=== PATIENT | female | born 1985 | race Caucasian/White ===

== ENCOUNTER 2017-07-20 05:25 | Emergency (ER) | payer OTHER ==
[2017-07-20] MEDS ORDERED: SODIUM CHLORIDE 1,000 ML IV STA (06:15)
--- NOTE | 2017-07-20 06:15 | PDOC ---
History of Present Illness - General History Source: Patient Exam Limitations: No Limitations - History of Present Illness Initial Comments: 07/20/17 06:33 The patient is a 31 year old female (8 weeks ) with no significant past medical history who presents to the emergency department with one day of vaginal bleeding. Patient reports bleeding is associated with cramping, nausea and dizziness. Patient presents to the ED for further evaluation. Patient denies chest pain, headache. Patient denies fever, chills, abdominal pain,vomit, diarrhea or constipation. Patient denies dysuria, frequency, urgency or hematuria. Patient denies sick contacts or recent travel. <Brinda Jaeger - Last Filed: 07/20/17 06:33> <Sarah Hanley - Last Filed: 07/22/17 09:44> - General Stated Complaint: ABDOMINL PAIN Time Seen by Provider: 07/20/17 06:11 Past History <Brinda Jaeger - Last Filed: 07/20/17 06:33> <Sarah Hanley - Last Filed: 07/22/17 09:44> - Past Medical History Allergies/Adverse Reactions: Allergies Allergy/AdvReac Type Severity Reaction Status Date / Time No Known Allergies Allergy Verified 07/20/17 07:00 Home Medications: Ambulatory Orders Misoprostol [Cytotec] 200 mcg PO TID #8 tablet 07/20/17 Review of Systems - Review of Systems Able to Perform ROS?: Yes Comments:: 07/20/17 06:33 GENERAL/CONSTITUTIONAL: No fever or chills. No weakness. HEAD, EYES, EARS, NOSE AND THROAT: No change in vision. No ear pain or discharge. No sore throat. GASTROINTESTINAL: + nausea. +cramping. No vomiting, diarrhea or constipation. GENITOURINARY: +vaginal bleeding. No dysuria, frequency, or change in urination. CARDIOVASCULAR: + shortness of breath. No chest pain. RESPIRATORY: No cough, wheezing, or hemoptysis. MUSCULOSKELETAL: No joint or muscle swelling or pain. No neck or back pain. SKIN: No rash NEUROLOGIC: No headache, vertigo, loss of consciousness, or change in strength/ sensation. ENDOCRINE: No increased thirst. No abnormal weight change. HEMATOLOGIC/LYMPHATIC: No anemia, easy bleeding, or history of blood clots. ALLERGIC/IMMUNOLOGIC: No hives or skin allergy. <Brinda Jaeger - Last Filed: 07/20/17 06:33> *Physical Exam - Physical Exam Comments: GENERAL: Awake, alert, and fully oriented, in no acute distress HEAD: No signs of trauma EYES: PERRLA, EOMI, sclera anicteric, conjunctiva clear ENT: Auricles normal inspection, hearing grossly normal, nares patent, oropharynx clear without exudates. Moist mucosa NECK: Normal ROM, supple, no lymphadenopathy, JVD, or masses LUNGS: Breath sounds equal, clear to auscultation bilaterally. No wheezes, and no crackles HEART: Regular rate and rhythm, normal S1 and S2, no murmurs, rubs or gallops ABDOMEN: Soft, +suprapubic tenderness, normoactive bowel sounds. No guarding, no rebound. No masses EXTREMITIES: Normal range of motion, no edema. No clubbing or cyanosis. No cords, erythema, or tenderness NEUROLOGICAL: Cranial nerves II through XII grossly intact. Normal speech, normal gait SKIN: Warm, Dry, normal turgor, no rashes or lesions noted. <Sarah Hanley - Last Filed: 07/22/17 09:44> ED Treatment Course - LABORATORY CBC & Chemistry Diagram: 07/20/17 06:51 07/20/17 06:51 <Sarah Hanley - Last Filed: 07/22/17 09:44> Medical Decision Making - Medical Decision Making 07/20/17 07:[address] Shea at shift change. Awaiting labs, ultrasound to r/o miscarriage. <Sarah Hanley - Last Filed: 07/22/17 09:44> *DC/Admit/Observation/Transfer - Attestations Scribe Attestion: 07/20/17 06:34 Documentation prepared by Brinda Jaeger, acting as medical accounting clerk for Sarah Hanley MD <Brinda Jaeger - Last Filed: 07/20/17 06:33> <Sarah Hanley - Last Filed: 07/22/17 09:44> Diagnosis at time of Disposition: Miscarriage - Discharge Dispostion Disposition: HOME Condition at time of disposition: Stable - Prescriptions Prescriptions: Misoprostol [Cytotec] 200 mcg PO TID #8 tablet - Referrals Referrals: Commentucci,Casey, MD [Primary Care Provider] - Stefania Mariano MD [Staff Physician] - - Patient Instructions Printed Discharge Instructions: DI for Miscarriage Additional Instructions: Activity as tolerated. Stay well hydrated. Blood tests and an ultrasound today are consistent with the miscarriage you were expecting. To help pass the , take Cytotec as prescribed. This will cause a heavy period with cramps and bleeding. Take Tylenol 1000 mg every 8 hours and/or ibuprofen 600 mg every 8 hours as needed for pain. Continue your medications as previously prescribed by your physician. Reschedule your appointment with Dr. Salcido for next week. Return to the emergency department sooner for any new or concerning symptoms, particularly severe pain or bleeding, feeling weak or light-headed, fever. - Post Discharge Activity
[2017-07-20] MEDS ORDERED: ACETAMINOPHEN 1000 MG/100 ML VIAL (NON FORMULARY) IVPB ONE (06:16)
[2017-07-20] MEDS ORDERED: ONDANSETRON 4 MG/2 ML VIAL IVPUSH ONE (06:16)
[2017-07-20 07:00] VITALS: TEMP 97.4; BMI 29.7
[2017-07-20 07:42] LABS: BASO % 0.4 % (0-2.0); EOS % 3.2 % (0-4.5); HEMATOCRIT 37.9 % (32.4-45.2); HEMOGLOBIN 12.9 GM/dL (10.7-15.3); MCH 30.9 pg (25.7-33.7); MEAN PLT VOLUME 7.8 fl (7.5-11.1); MONO % 4.5 % (3.8-10.2); NEUT % 78.9 % (42.8-82.8); PLATELET COUNT 169 K/MM3 (134-434); RBC 4.16 M/mm3 (3.60-5.2); RDW 13.1 % (11.6-15.6); WHITE BLOOD COUNT 8.8 K/mm3 (4.0-10.0)
[2017-07-20 07:58] LABS: ALBUMIN 3.4 g/dl (3.4-5.0); ALK PHOS 56 U/L (45-117); ANION GAP 8 (8-16); BILIRUBIN,TOTAL 0.3 mg/dL (0.2-1.0); BLOOD UREA NITROGEN 7 mg/dL (7-18); CALCIUM 8.1 mg/dL (8.5-10.1); CHLORIDE 108 mmol/L (98-107); CO2 24 mmol/L (21-32); CREATININE 0.5 mg/dL (0.55-1.02); GLUCOSE,RANDOM 96 mg/dL (74-106); POTASSIUM 3.9 mmol/L (3.5-5.1); SGOT/AST 15 U/L (15-37); SGPT/ALT 17 U/L (12-78); SODIUM 140 mmol/L (136-145); TOT PROT 6.4 g/dl (6.4-8.2)
[2017-07-20 08:24] VITALS: BP 106/55; PULSE 66
--- NOTE | 2017-07-20 09:27 | PDOC ---
*Physical Exam - Vital Signs Last Vital Signs Temp Pulse Resp BP Pulse Ox 97.4 F L 66 18 106/55 100 07/20/17 06:00 07/20/17 08:24 07/20/17 06:00 07/20/17 08:24 07/20/17 08:24 - Physical Exam Comments: 07/20/17 09:25 Vital signs stable Mild suprapubic is comfort without guarding or rebound Intermittent vaginal bleeding ongoing ED Treatment Course - LABORATORY CBC & Chemistry Diagram: 07/20/17 06:51 07/20/17 06:51 - ADDITIONAL ORDERS Additional order review: Laboratory Results 07/20/17 07/20/17 06:51 06:51 Sodium 140 Potassium 3.9 Chloride 108 H Carbon Dioxide 24 Anion Gap 8 BUN 7 Creatinine 0.5 L Creat Clearance w eGFR > 60 Random Glucose 96 Calcium 8.1 L Total Bilirubin 0.3 AST 15 ALT 17 Alkaline Phosphatase 56 Total Protein 6.4 Albumin 3.4 Beta HCG, Quant 2826.3 Blood Type O POSITIVE Antibody Screen Negative 07/20/17 06:51 RBC 4.16 MCV 91.0 MCHC 34.0 RDW 13.1 MPV 7.8 Neutrophils % 78.9 Lymphocytes % 13.0 Monocytes % 4.5 Eosinophils % 3.2 Basophils % 0.4 - Medications Given in the ED: ED Medications Discontinued Medications Generic Name Dose Route Start Last Admin Trade Name Goranq PRN Reason Stop Dose Admin Acetaminophen 1,000 mg 07/20/17 06:16 07/20/17 06:58 Ofirmev Injection - IVPB 07/20/17 06:17 1,000 mg ONCE ONE Administration Sodium Chloride 1,000 mls @ 1,000 mls/hr 07/20/17 06:15 07/20/17 06:58 Normal Saline - IV 07/20/17 07:14 1,000 mls/hr ASDIR STA Administration Ondansetron HCl 4 mg 07/20/17 06:16 07/20/17 06:58 Zofran Injection IVPUSH 07/20/17 06:17 4 mg ONCE ONE Administration Medical Decision Making - Medical Decision Making 07/20/17 09:25 Received signout on this 31-year-old female with LMP of about 8 weeks who presented with vaginal bleeding and pelvic cramping. Os was closed with active bleeding on examination. Plan at sign out was to check labs and transvaginal ultrasound. On further history, patient had 2 ultrasounds last week at to [facility] showing lack of heart rate and anticipated miscarriage. Patient had preliminary appointment for tomorrow for possible D+C, presented overnight for vaginal bleeding. In light of history, presentation seems most consistent with active miscarriage. Labs are within normal limits, hCG 2800 Rh+ Ultrasound shows 1.3 cm endometrial stripe with blood clots but no gestational sac or pole. Active first trimester miscarriage, will discuss with DRUG AND ALCOHOL COUNSELLOR. 07/20/17 12:00 Case discussed with flying i instructor Tavia Lester at [facility]. Pt was referred to Dr. Salcido, first appt tomorrow. Discussed with Dr. Salcido, recommends cytotec 200mcg tid x3d and f/u with her next week. First dose given in ED, remainder sent to pharmacy. Understands return criteria and importance of f/u. *DC/Admit/Observation/Transfer Diagnosis at time of Disposition: Miscarriage - Discharge Dispostion Disposition: HOME Condition at time of disposition: Stable - Prescriptions Prescriptions: Misoprostol [Cytotec] 200 mcg PO TID #8 tablet - Referrals Referrals: Casey Olivares MD [Primary Care Provider] - Stefania Mariano MD [Staff Physician] - - Patient Instructions Printed Discharge Instructions: DI for Miscarriage Additional Instructions: Activity as tolerated. Stay well hydrated. Blood tests and an ultrasound today are consistent with the miscarriage you were expecting. To help pass the , take Cytotec as prescribed. This will cause a heavy period with cramps and bleeding. Take Tylenol 1000 mg every 8 hours and/or ibuprofen 600 mg every 8 hours as needed for pain. Continue your medications as previously prescribed by your physician. Reschedule your appointment with Dr. Salcido for next week. Return to the emergency department sooner for any new or concerning symptoms, particularly severe pain or bleeding, feeling weak or light-headed, fever. - Post Discharge Activity
[2017-07-20] MEDS ORDERED: MISOPROSTOL 200 MCG TABLET PO ONE (10:54)
[2017-07-20] MEDS ORDERED: MISOPROSTOL 100 MCG TABLET PO SCH (12:00)
== END 2017-07-20 12:23 | disposition home or self-care (01) ==
LOC: JER 05:25
PROC: 3E033NZ Introduction of Analgesics, Hypnotics, Sedatives into Peripheral Vein, Percutaneous Approach (ICD-10-PCS; principal; 2017-07-20)
PROC: 3E033GC Introduction of Other Therapeutic Substance into Peripheral Vein, Percutaneous Approach (ICD-10-PCS; 2017-07-20)
DX: O26.891 Other specified pregnancy related conditions, first trimester (principal); O02.1 Missed abortion; Z3A.08 8 weeks gestation of pregnancy
CPT/HCPCS: 36415; 76817-TC; 80053; 84702; 85025; 86850; 86900; 86901; 96374; 96375; 99282-25

== ENCOUNTER 2018-10-13 11:50 | Emergency (ER) | payer OTHER ==
[2018-10-13 12:04] VITALS: TEMP 98.2; BMI 26.5
--- NOTE | 2018-10-13 12:18 | PDOC ---
Rapid Medical Evaluation Time Seen by Provider: 10/13/18 11:59 Medical Evaluation: Allergies Allergy/AdvReac Type Severity Reaction Status Date / Time No Known Allergies Allergy Verified 07/20/17 07:00 10/13/18 12:00 I have performed a brief in-person evaluation of this patient. The patient presents with a chief complaint of: lower abdominal pain x 15 days, ~3 months , A2, stomach feels inflamed, +nausea, denies vomiting, denies vaginal bleeding, reports "foul smelling odor" patient does not have OB Pertinent physical exam findings: well appearing, abd soft non tender I have ordered the following: urine, labs, T&S, US The patient will proceed to the ED for further evaluation. Discharge Disposition - Referrals Referrals: Mil Matias MD [Primary Care Provider] - - Patient Instructions - Post Discharge Activity
--- NOTE | 2018-10-13 13:05 | PDOC ---
*Physical Exam - Vital Signs Last Vital Signs Temp Pulse Resp BP Pulse Ox 98.2 F 72 16 123/60 100 10/13/18 12:00 10/13/18 12:00 10/13/18 12:00 10/13/18 12:00 10/13/18 12:00 ED Treatment Course - LABORATORY CBC & Chemistry Diagram: 10/13/18 13:19 10/13/18 13:19 Medical Decision Making - Medical Decision Making 10/13/18 13:05 Pt seen by Midlevel Provider under my direct supervision Ancillary studies reviewed I agree with plan as outlined by Midlevel Provider *DC/Admit/Observation/Transfer Diagnosis at time of Disposition: Abdominal pain during intrauterine , Nausea and vomiting during prior to 22 weeks gestation, Round ligament pain - Discharge Dispostion Disposition: HOME Condition at time of disposition: Stable - Prescriptions Prescriptions: Doxylamine Succinate/Vit B6 [Debo Perla 10-10 mg Tablet] 1 each PO HS PRN #20 tablet. PRN Reason: nausea - Referrals Referrals: Mil Matias MD [Primary Care Provider] - - Patient Instructions Printed Discharge Instructions: Common Discomforts and Bodily Changes During , Managing Symptoms of Additional Instructions: Your labs and ultrasound was normal. Take prescribed medication as needed for nausea. Take Tylenol as needed for pain. Apply hot compress to abdominal as needed for pain. Follow-up with OB as scheduled Print Language: SAMOAN - Post Discharge Activity
[2018-10-13 13:31] LABS: BASO % 0.3 % (0-2.0); EOS % 3.1 % (0-4.5); HEMATOCRIT 38.8 % (32.4-45.2); HEMOGLOBIN 13.2 GM/dL (10.7-15.3); LYMPH % 20.9 % (8-40); MCHC 34.1 g/dl (32.0-36.0); MEAN CELL VOLUME 90.8 fl (80-96); MONO % 5.9 % (3.8-10.2); NEUT % 69.8 % (42.8-82.8); PLATELET COUNT 207 K/MM3 (134-434); RBC 4.27 M/mm3 (3.60-5.2); RDW 12.9 % (11.6-15.6); WHITE BLOOD COUNT 8.1 K/mm3 (4.0-10.0)
--- NOTE | 2018-10-13 13:33 | PDOC ---
History of Present Illness - General Chief Complaint: Pain Stated Complaint: Pain Time Seen by Provider: 10/13/18 11:59 History Source: Patient Exam Limitations: Clinical Condition - History of Present Illness Initial Comments: 10/13/18 14:08 Patient 0-1 LMP July told present with complaint of 2 weeks history of intermittent cramping no abdominal pain at 12 weeks by LMP. Patient report calling OB clinic but could not be seen due to insurance issues. Patient has not had hard OB visit for this . Denies vaginal bleeding or endorses nausea but no vomiting. Denies any other symptoms Timing/Duration: other (2 wks) Past History - Past Medical History Allergies/Adverse Reactions: Allergies Allergy/AdvReac Type Severity Reaction Status Date / Time No Known Allergies Allergy Verified 10/13/18 14:12 Home Medications: Ambulatory Orders Doxylamine Succinate/Vit B6 [Debo Perla 10-10 mg Tablet] 1 each PO HS PRN #20 tablet. 10/13/18 Anemia: No Asthma: No COPD: No - Surgical History Abdominal Surgery: No - Immunization History TDAP Vaccination: No Immunization Up to Date: No - Suicide/Smoking/Psychosocial Hx Smoking History: Never smoked Have you smoked in the past 12 months: No Information on smoking cessation initiated: No Hx Alcohol Use: No Drug/Substance Use Hx: No Review of Systems - Review of Systems Able to Perform ROS?: Yes Is the patient limited Urdu proficient: No Constitutional: No: Weakness HEENTM: No: Symptoms Reported Respiratory: No: Symptoms reported Cardiac (ROS): No: Symptoms Reported ABD/GI: Yes: Symptoms Reported, See HPI, Nausea, Abdominal cramping ( intermittent cramping). No: Vomiting *Physical Exam - Vital Signs Last Vital Signs Temp Pulse Resp BP Pulse Ox 98.2 F 72 16 123/60 100 10/13/18 12:00 10/13/18 12:00 10/13/18 12:00 10/13/18 12:00 10/13/18 12:00 - Physical Exam Comments: 10/13/18 14:11 GENERAL: Well developed, well nourished. Awake and alert. No acute distress. HEENT: Normocephalic, atraumatic. PERRLA, EOMI. No conjunctival pallor. Sclera are non-icteric. Moist mucous membranes. Oropharynx is clear. NECK: Supple. Full ROM. CARDIOVASCULAR: Regular rate and rhythm. No murmurs, rubs, or gallops. Distal pulses are 2+ and symmetric. PULMONARY: No evidence of respiratory distress. Lungs clear to auscultation bilaterally. No wheezing, rales or rhonchi. ABDOMINAL: Soft. 12wks gravid adbomne. Non-tender. Non-distended. No rebound or guarding. No organomegaly. Normoactive bowel sounds. MUSCULOSKELETAL Normal range of motion at all joints. SKIN: Warm and dry. Normal capillary refill. NEUROLOGICAL: Alert, awake, appropriate. Gait is normal without ataxia. PSYCHIATRIC: Cooperative. Good eye contact. Appropriate mood General Appearance: Yes: Nourished, Appropriately Dressed. No: Apparent Distress ED Treatment Course - LABORATORY CBC & Chemistry Diagram: 10/13/18 13:19 10/13/18 13:19 Medical Decision Making - Medical Decision Making 10/13/18 14:09 Patient 0-1 LMP July told present with complaint of 2 weeks history of intermittent cramping no abdominal pain at 12 weeks by LMP. Patient report calling OB clinic but could not be seen due to insurance issues. Patient has not had hard OB visit for this . Denies vaginal bleeding or endorses nausea but no vomiting. Denies any other symptoms Exam significant for 12 weeks gravid abdomen otherwise normal exam. CBC, CMP, beta hCG labs ordered. Pelvic ultrasound ordered access . Symptoms likely around ligament pain versus UTI. Treat based on lab and imaging results 10/13/18 15:34 CBC, Chemistry lab unremarkable. Beta hcg 51501. U/S shows live IUP of 12.2wks GA with FH of 145bpm. UA with no significant findings. Patient symptoms likely round ligament pain and stable for discharge to take Tylenol prn for pain and hot compress with OB f/u as scheduled in 4 days *DC/Admit/Observation/Transfer Diagnosis at time of Disposition: Abdominal pain during intrauterine , Nausea and vomiting during prior to 22 weeks gestation, Round ligament pain - Discharge Dispostion Disposition: HOME Condition at time of disposition: Stable Decision to Admit order: No - Prescriptions Prescriptions: Doxylamine Succinate/Vit B6 [Debo Perla 10-10 mg Tablet] 1 each PO HS PRN #20 tablet. PRN Reason: nausea - Referrals Referrals: Mil Matias MD [Primary Care Provider] - - Patient Instructions Printed Discharge Instructions: Common Discomforts and Bodily Changes During , Managing Symptoms of Additional Instructions: Your labs and ultrasound was normal. Take prescribed medication as needed for nausea. Take Tylenol as needed for pain. Apply hot compress to abdominal as needed for pain. Follow-up with OB as scheduled Print Language: GUAMANIAN - Post Discharge Activity
[2018-10-13] MEDS ORDERED: ACETAMINOPHEN 325 MG TABLET (FP) PO ONE (13:34)
[2018-10-13 13:53] LABS: URINE APPEARANCE CLEAR; URINE BILIRUBIN NEGATIVE (NEGATIVE); URINE COLOR YELLOW; URINE GLUCOSE (UA) NEGATIVE (NEGATIVE); URINE KETONE NEGATIVE (NEGATIVE); URINE LEUK ESTERASE NEGATIVE (NEGATIVE); URINE NITRITE NEGATIVE (NEGATIVE); URINE PROTEIN NEGATIVE (NEGATIVE)
[2018-10-13] MEDS ORDERED: ACETAMINOPHEN 325 MG TABLET (FP) ONE (14:03)
[2018-10-13 14:10] LABS: ALBUMIN 3.5 g/dl (3.4-5.0); BILIRUBIN,TOTAL 0.3 mg/dL (0.2-1); CREATININE 0.4 mg/dL (0.55-1.3); POTASSIUM 3.9 mmol/L (3.5-5.1); TOT PROT 6.9 g/dl (6.4-8.2)
[2018-10-13 15:41] VITALS: BP 122/58; PULSE 68
== END 2018-10-13 15:35 | disposition home or self-care (01) ==
LOC: JER 11:50
DX: O26.891 Other specified pregnancy related conditions, first trimester (principal); Z3A.12 12 weeks gestation of pregnancy; R11.2 Nausea with vomiting, unspecified
CPT/HCPCS: 36415; 76801-TC; 80053; 81003; 84702; 85025; 86850; 86900; 86901; 87086; 87491; 87591; 99283-25

== ENCOUNTER 2019-04-21 02:15 | Inpatient (IN) | payer OTHER ==
[2019-04-21] MEDS ORDERED: DEXTROSE 5%-LACTATED RINGERS 1,000 ML IV SCH ×2 (02:30→04:30)
[2019-04-21] MEDS ORDERED: AMPICILLIN - 2 GM in SODIUM CHLORIDE 100 ML IVPB ONE (02:30)
[2019-04-21 03:09] VITALS: BMI 35.3
[2019-04-21 03:34] LABS: BASO % 0.3 % (0-2.0); EOS % 2.1 % (0-4.5); HEMATOCRIT 34.3 % (32.4-45.2); HEMOGLOBIN 11.1 GM/dL (10.7-15.3); LYMPH % 34.8 % (8-40); MCH 26.5 pg (25.7-33.7); MCHC 32.4 g/dl (32.0-36.0); MEAN CELL VOLUME 81.8 fl (80-96); MEAN PLT VOLUME 9.2 fl (7.5-11.1); NEUT % 57.8 % (42.8-82.8); PLATELET COUNT 196 K/MM3 (134-434); RDW 15.6 % (11.6-15.6); WHITE BLOOD COUNT 8.3 K/mm3 (4.0-10.0)
[2019-04-21] MEDS ORDERED: OXYTOCIN 20 UNITS in 0.9% NS 20 UNIT/1,000 ML INFUS.BAG IV ONE ×2 (03:42→05:53)
[2019-04-21 03:47] LABS: INR 0.9 (0.83-1.09); PROTHROMBIN TIME (PATIENT) 10.6 SEC (9.7-13.0)
[2019-04-21 03:50] LABS: ACTIVATED PTT 28.3 SECONDS (25.2-36.5)
[2019-04-21 03:54] LABS: CREATININE 0.6 mg/dL (0.55-1.3); POTASSIUM 3.4 mmol/L (3.5-5.1)
--- NOTE | 2019-04-21 04:23 | HP ---
Past Medical History - Admission Chief Complaint: Labor pain History of Present Illness: 33 yo @ 39 weeks gestation, with prior , admitted in active labor. Upon admission she was 9cm dilated. History Source: Patient Limitations to Obtaining History: No Limitations - Past Medical History ...: 4 ...Para: 1 ...Term: 1 ...: 0 ...Spon : 2 ...Induced : 0 ...Multiple Gestation: 0 ...LMP: 07/27/18 ... Weeks Gestation by Dates: 38.2 ...EDC by Dates: 05/03/19 ...EDC by Sono: 04/30/19 - Past Surgical History Past Surgical History: Yes: Hx Myomectomy: No Hx Transabdominal Cerclage: No - Smoking History Smoking history: Never smoked Have you smoked in the past 12 months: No - Alcohol/Substance Use Hx Alcohol Use: No - Social History Usual Living Arrangement: Yes: With Significant Other History of Recent Travel: No Home Medications - Allergies Allergies/Adverse Reactions: Allergies Allergy/AdvReac Type Severity Reaction Status Date / Time No Known Allergies Allergy Verified 04/21/19 03:16 - Home Medications Home Medications: Ambulatory Orders Iron 1 tab PO DAILY 04/21/19 Vitamins (Sjr) - 1 tab PO DAILY 04/21/19 Family Medical History Family History: Unremarkable Review of Systems - Review of Systems Constitutional: reports: No Symptoms Eyes: reports: No Symptoms HENT: reports: No Symptoms Neck: reports: No Symptoms Cardiovascular: reports: No Symptoms Respiratory: reports: No Symptoms Gastrointestinal: reports: No Symptoms Genitourinary: reports: Pain Breasts: reports: No Symptoms Reported Musculoskeletal: reports: No Symptoms Integumentary: reports: No Symptoms Neurological: reports: No Symptoms Endocrine: reports: No Symptoms Hematology/Lymphatic: reports: No Symptoms Psychiatric: reports: No Symptoms Pain Intensity: 9 Physical Exam - Maternity Vital Signs: Vital Signs Temperature 98.1 F 04/21/19 02:15 Pulse Rate 94 H 04/21/19 02:15 Respiratory Rate 20 04/21/19 02:15 Blood Pressure 150/88 04/21/19 02:15 O2 Sat by Pulse Oximetry (%) Constitutional: Yes: Well Nourished Eyes: Yes: Conjunctiva Clear HENT: Yes: Atraumatic Neck: Yes: Supple Cardiovascular: Yes: Regular Rate and Rhythm Lungs: Clear to auscultation - Abdominal Exam/OB Number of Fetuses: Single Presentation: Vertex - Vaginal Exam/OB Presentation: Vertex/Position Station: -1 - Physical Exam Integumentary: Yes: WNL ...Motor Strength: WNL Psychiatric: Yes: Alert, Oriented - Labs Lab Results: CBC, BMP 04/21/19 03:10 04/21/19 03:10 Problem List - Problems (1) Previous section Problems reviewed: Yes Code(s): Z98.891 - HISTORY OF UTERINE SCAR FROM PREVIOUS SURGERY Assessment/Plan 39 weeks gestation Previous Admit to L&D Anticipate
--- NOTE | 2019-04-21 04:26 | PN ---
Delivery - Delivery Vaginal Delivery: V-Kosta Episiotomy/Laceration: Midline EBL (cc): 300 Delivery, Single - Feeding Plan Initial Plan: Exclusive throughout hospitalization Remarks - Remarks Remarks: Vaginal after of a live infant boy over midline episiotomy. Nose / oropharynx suctioned @ perineum. Cord around the body clamped and cut. Baby handed to nurse. Placenta expelled spontaneously intact. Episiotomy repaired with 2.0 Chromic in layers.
[2019-04-21] MEDS ORDERED: BISACODYL 10 MG SUPP.RECT RC PRN (04:27)
[2019-04-21] MEDS ORDERED: BENZOCAINE 20% 57 GM BOTTLE TP PRN (04:27)
[2019-04-21] MEDS ORDERED: WITCH HAZEL 50% (TUCKS) 40 PAD/JAR PAD TP PRN (04:27)
[2019-04-21] MEDS ORDERED: BENZOCAINE 28 GM HEMORRHOIDAL OINTMENT TP PRN (04:27)
[2019-04-21] MEDS ORDERED: METHYLERGONOVINE MALEATE 0.2 MG/1 ML AMP IM PRN (04:27)
[2019-04-21] MEDS ORDERED: OXYTOCIN 20 UNITS in 0.9% NS 20 UNIT/1,000 ML INFUS.BAG IV SCH (04:30)
[2019-04-21] MEDS: ACETAMINOPHEN 325 MG TABLET (FP) PO PRN ×2 (06:27→20:50)
[2019-04-21] MEDS: IBUPROFEN 600 MG TABLET (FP) PO PRN ×2 (06:27→20:51)
[2019-04-21] MEDS ORDERED: AMPICILLIN - 1 GM in SODIUM CHLORIDE 100 ML IVPB SCH (06:30)
[2019-04-21] MEDS: PRENATAL VITAMINS W/ FOLIC ACID TABLET (FP) PO SCH (10:30)
[2019-04-21] MEDS: FERROUS SO4 325 MG TABLET (FP) PO SCH ×2 (10:30→21:08)
[2019-04-22] MEDS: ACETAMINOPHEN 325 MG TABLET (FP) PO PRN ×2 (07:59→21:31)
[2019-04-22] MEDS: IBUPROFEN 600 MG TABLET (FP) PO PRN ×2 (08:00→21:31)
[2019-04-22 08:39] LABS: BASO % 0.6 % (0-2.0); EOS % 1.6 % (0-4.5); HEMATOCRIT 25.6 % (32.4-45.2); HEMOGLOBIN 8.3 GM/dL (10.7-15.3); LYMPH % 15.6 % (8-40); MCH 26.9 pg (25.7-33.7); MCHC 32.5 g/dl (32.0-36.0); MEAN CELL VOLUME 82.6 fl (80-96); MEAN PLT VOLUME 8.7 fl (7.5-11.1); MONO % 3.8 % (3.8-10.2); NEUT % 78.4 % (42.8-82.8); PLATELET COUNT 167 K/MM3 (134-434); RDW 15.6 % (11.6-15.6); WHITE BLOOD COUNT 8.8 K/mm3 (4.0-10.0)
[2019-04-22] MEDS ORDERED: DIPHTH,PERTUSS(ACELL),TET 0.5 ML DISP.SYRIN IM ONE (10:00)
[2019-04-22] MEDS: PRENATAL VITAMINS W/ FOLIC ACID TABLET (FP) PO SCH (10:02)
[2019-04-22] MEDS: FERROUS SO4 325 MG TABLET (FP) PO SCH ×2 (10:02→21:31)
--- NOTE | 2019-04-22 15:58 | PN ---
Post Progress Note - Subjective Subjective: ambulating, tolerating Po, lochia decreased, breast and bottle feeding. Post Day: 1 Type of Delivery: Vital Signs: Vital Signs Temperature 98.3 F 04/22/19 09:22 Pulse Rate 71 04/22/19 09:22 Respiratory Rate 18 04/22/19 09:22 Blood Pressure 126/78 04/22/19 09:22 O2 Sat by Pulse Oximetry (%) Breast Exam: Yes: Other (deferred) Uterus: Yes: Fundus Firm Abdomen/GI: Yes: Abdomen soft Lochia, amount: Moderate Extremities: Yes: Calves non-tender Activity: Ambulating - Labs Labs: CBC WBC 8.8 K/mm3 (4.0-10.0) 04/22/19 08:00 RBC 3.10 M/mm3 (3.60-5.2) L 04/22/19 08:00 Hgb 8.3 GM/dL (10.7-15.3) L 04/22/19 08:00 Hct 25.6 % (32.4-45.2) L D 04/22/19 08:00 MCV 82.6 fl (80-96) 04/22/19 08:00 MCH 26.9 pg (25.7-33.7) 04/22/19 08:00 MCHC 32.5 g/dl (32.0-36.0) 04/22/19 08:00 RDW 15.6 % (11.6-15.6) 04/22/19 08:00 Plt Count 167 K/MM3 (134-434) 04/22/19 08:00 MPV 8.7 fl (7.5-11.1) 04/22/19 08:00 Absolute Neuts (auto) 6.9 K/mm3 (1.5-8.0) 04/22/19 08:00 Neutrophils % 78.4 % (42.8-82.8) D 04/22/19 08:00 Lymphocytes % 15.6 % (8-40) D 04/22/19 08:00 Monocytes % 3.8 % (3.8-10.2) 04/22/19 08:00 Eosinophils % 1.6 % (0-4.5) 04/22/19 08:00 Basophils % 0.6 % (0-2.0) 04/22/19 08:00 Nucleated RBC % 0 % (0-0) 04/22/19 08:00 Assessment/Plan PPD # 1 S/P successful , mild anemia, in stable condition. -Encourage ambulation -AM CBC -Anticipate D/C home tomorrow
[2019-04-22] MEDS ORDERED: SENNOSIDES/DOCUSATE COMBO (SENNA PLUS) TABLET (UD) PO PRN (22:00)
[2019-04-23] MEDS: ACETAMINOPHEN 325 MG TABLET (FP) PO PRN (08:48)
[2019-04-23] MEDS: IBUPROFEN 600 MG TABLET (FP) PO PRN (08:49)
--- NOTE | 2019-04-23 09:49 | DS ---
Physical Examination Vital Signs: Vital Signs Temperature 98.7 F 04/22/19 20:26 Pulse Rate 74 04/22/19 20:26 Respiratory Rate 18 04/22/19 20:26 Blood Pressure 133/75 04/22/19 20:26 O2 Sat by Pulse Oximetry (%) Findings/Remarks: Patient is doing well, tolerating PO, baby at bedside, lochia is moderate, breast feeding, voiding Constitutional: Yes: Calm HENT: Yes: Atraumatic Neck: Yes: Supple Cardiovascular: Yes: Regular Rate and Rhythm Respiratory: Yes: Regular Gastrointestinal: Yes: Soft ...Rectal Exam: Yes: Other (deferred) Renal/: Yes: Other (deferred) Breast(s): Yes: Other (deferred) Musculoskeletal: Yes: WNL Extremities: Yes: WNL Edema: Yes Edema: LLE: Trace, RLE: Trace Integumentary: Yes: WNL Neurological: Yes: Alert, Oriented ...Motor Strength: WNL Psychiatric: Yes: Alert, Oriented Labs: CBC, BMP 04/22/19 08:00 04/21/19 03:10 Discharge Summary Problems reviewed: Yes Reason For Visit: LABOR ADMIT Current Active Problems Previous section (Acute) Procedures: Principal: vaginal delivery () Hospital Course: Patient presented in labor and delivered vaginally, uncomplicated PP recovery and cleared for DC on PPD # 2 Plan of Treatment: Return to regular diet and activity as tolerated. Follow up for visit. Cll MD with any questions or concerns Condition: Stable - Instructions Diet, Activity, Other Instructions: Please return to regular diet and activity as tolerated. Follow up in 6 weeks for visit. Call MD with any questions or concerns. Referrals: Paulette Parks MD [Staff Physician] - Disposition: HOME - Home Medications Comprehensive Discharge Medication List: Ambulatory Orders Iron 1 tab PO DAILY 04/21/19 Vitamins (Sjr) - 1 tab PO DAILY 04/21/19
[2019-04-23] MEDS: FERROUS SO4 325 MG TABLET (FP) PO SCH (10:23)
[2019-04-23] MEDS: PRENATAL VITAMINS W/ FOLIC ACID TABLET (FP) PO SCH (10:23)
[2019-04-23 15:04] VITALS: BP 128/82; PULSE 70; TEMP 98.5
== END 2019-04-23 12:55 | disposition home or self-care (01) | DRG 560 ==
LOC: JLDR 02:15 → J3W 06:00
PROVIDERS: ADMIT Obstetrics & Gynecology; ATTEND Obstetrics & Gynecology
PROC: 10E0XZZ Delivery of Products of Conception, External Approach (ICD-10-PCS; principal; 2019-04-21)
PROC: 0W8NXZZ Division of Female Perineum, External Approach (ICD-10-PCS; 2019-04-21)
DX: O34.211 Maternal care for low transverse scar from previous cesarean delivery (principal); O69.89X0 Labor and delivery complicated by other cord complications, not applicable or unspecified; O99.02 Anemia complicating childbirth; D64.9 Anemia, unspecified; Z3A.39 39 weeks gestation of pregnancy; Z37.0 Single live birth
CPT/HCPCS: 36415; 59409; 80048; 85025; 85610; 85730; 86593; 86850; 86900; 86901; 87389; 90715

== ENCOUNTER 2024-07-21 12:11 | Emergency (ER) | payer OTHER ==
[2024-07-21 12:26] VITALS: BP 154/79; PULSE 75; RESP 16; TEMP 98.5; BMI 31.8
[2024-07-21 13:41] LABS: EPI CELLS 4 /uL (0-25.1); HYALINE CASTS 0 /uL (0-3.1); PH,URINE 6.5 (5.0-8.0); URINE APPEARANCE CLEAR; URINE BACTERIA 164 /uL (0-1359); URINE BILIRUBIN NEGATIVE (NEGATIVE); URINE COLOR YELLOW; URINE GLUCOSE (UA) NEGATIVE (NEGATIVE); URINE KETONE 1+ (NEGATIVE); URINE LEUK ESTERASE NEGATIVE (NEGATIVE); URINE NITRITE NEGATIVE (NEGATIVE); URINE PROTEIN NEGATIVE (NEGATIVE); URINE RBC 29 /uL (0-23.9); URINE UROBILINOGEN 0.2 mg/dL (0.2-1.0); URINE WBC 1 /uL (0-25.8)
[2024-07-21 14:02] LABS: BASO % 0.5 % (0-2.0); EOS % 5.4 % (0-4.5); HEMATOCRIT 43.6 % (32.4-45.2); HEMOGLOBIN 14.8 GM/dL (10.7-15.3); LYMPH % 29.6 % (8-40); MCH 30.7 pg (25.7-33.7); MEAN CELL VOLUME 90.2 fl (80-96); MEAN PLT VOLUME 8.2 fl (7.5-11.1); MONO % 11.4 % (3.8-10.2); NEUT % 53.1 % (42.8-82.8); PLATELET COUNT 217 10^3/uL (134-434); RBC 4.84 M/mm3 (3.60-5.2); RDW 13.1 % (11.6-15.6); WHITE BLOOD COUNT 4.4 K/mm3 (4.0-10.0)
[2024-07-21 14:28] LABS: POTASSIUM 3.6 mmol/L (3.5-5.1)
[2024-07-21 14:30] LABS: BLOOD UREA NITROGEN 6.5 mg/dL (7-18); CALCIUM 9.3 mg/dL (8.5-10.1)
[2024-07-21 14:34] LABS: CREATININE 0.5 mg/dL (0.55-1.3)
[2024-07-21 15:33] LABS: HIV INTERPRETATION NEGATIVE (NEGATIVE)
== END 2024-07-21 16:40 | disposition home or self-care (01) ==
LOC: JER 12:11
DX: O09.521 Supervision of elderly multigravida, first trimester (principal); O20.9 Hemorrhage in early pregnancy, unspecified; Z3A.01 Less than 8 weeks gestation of pregnancy
CPT/HCPCS: 36415; 76817-TC; 80048; 81003; 84702; 85025; 86803; 86850; 86900; 86901; 87086; 87389; 99284-25